=== PATIENT | female | born 1965 | race Caucasian/White ===

== ENCOUNTER 2017-05-26 11:05 | Emergency (ER) | payer OTHER ==
[~2017-05-26] VITALS: Ht 162.6 cm; Wt 97.5 kg
[2017-05-26 11:18] VITALS: BP 138/89; Ht 162.6 cm; Wt 97.5 kg
== END 2017-05-26 13:04 | disposition home or self-care (01) ==
LOC: ED 11:05
DX: M54.5 Low back pain (principal)